=== PATIENT | male | born 1955 | race Two or more races ===

== ENCOUNTER 2017-09-10 12:14 | Emergency (ER) | payer OTHER ==
[2017-09-10 12:28] VITALS: BP 141/87; PULSE 69; TEMP 97.8; BMI 28.4
--- NOTE | 2017-09-10 13:24 | PDOC ---
History of Present Illness - General Chief Complaint: Cold Symptoms Stated Complaint: BODYACHES Time Seen by Provider: 09/10/17 12:50 History Source: Patient - History of Present Illness Timing/Duration: reports: other Associated Symptoms: reports: cough. denies: fever/chills, shortness of breath Past History - Past Medical History Allergies/Adverse Reactions: Allergies Allergy/AdvReac Type Severity Reaction Status Date / Time No Known Allergies Allergy Verified 09/10/17 12:28 Home Medications: Ambulatory Orders Hydrochlorothiazide [Hctz -] 12.5 mg PO DAILY 06/11/13 Lisinopril [Prinivil -] 40 mg PO DAILY 06/11/13 COPD: No HTN: Yes - Immunization History Immunization Up to Date: Yes - Suicide/Smoking/Psychosocial Hx Smoking Status: No Smoking History: Never smoked Have you smoked in the past 12 months: No Number of Cigarettes Smoked Daily: 0 Information on smoking cessation initiated: No Hx Alcohol Use: No Drug/Substance Use Hx: No Substance Use Type: None Review of Systems - Review of Systems Constitutional: No: Chills, Fever Respiratory: Yes: Cough. No: Shortness of Breath Cardiac (ROS): No: Chest Pain *Physical Exam - Vital Signs Last Vital Signs Temp Pulse Resp BP Pulse Ox 97.8 F 69 16 141/87 100 09/10/17 12:25 09/10/17 12:25 09/10/17 12:25 09/10/17 12:25 09/10/17 12:25 - Physical Exam General Appearance: Yes: Appropriately Dressed. No: Apparent Distress HEENT: positive: Normal Voice Respiratory/Chest: positive: Lungs Clear, Normal Breath Sounds. negative: Respiratory Distress Cardiovascular: positive: Regular Rate, S1, S2 Integumentary: positive: Dry, Warm Neurologic: positive: Fully Oriented, Alert, Normal Mood/Affect Medical Decision Making - Medical Decision Making 09/10/17 13:24 61 yo M, h/o HTN, here w/ productive cough x 6 days. No sob, f/c. Denies body aches to me as was reported to triage. Not taking anything for cough. No tob hx. Pt well chuck and stable w/ clear chest/lungs. M/l viral. Dc w/ OTC meds and pmd f/u as needed *DC/Admit/Observation/Transfer Diagnosis at time of Disposition: Cough - Discharge Dispostion Disposition: HOME Condition at time of disposition: Good - Referrals Referrals: Whitney Hernandez MD [Primary Care Provider] - - Patient Instructions Additional Instructions: Es muy probable que tenga danette infeccin viral de las vas respiratorias superiores que se resolver a tiempo. Puede naa Delsym, Robitussin o guafenisin en el mostrador. Tambin joyce muchos lquidos. Si los sntomas persisten, peyton un seguimiento con quiroz PMD - Post Discharge Activity
== END 2017-09-10 13:14 | disposition home or self-care (01) ==
LOC: JERFT 12:14
DX: R05 Cough (principal); I10 Essential (primary) hypertension
CPT/HCPCS: 99281-25

== ENCOUNTER 2018-05-14 10:11 | Emergency (ER) | payer OTHER ==
[2018-05-14 10:19] VITALS: BP 141/81; PULSE 85; TEMP 98.2; BMI 27.4
--- NOTE | 2018-05-14 11:18 | PDOC ---
History of Present Illness - General Chief Complaint: Cold Symptoms Stated Complaint: COUGH Time Seen by Provider: 05/14/18 11:06 History Source: Patient Exam Limitations: No Limitations - History of Present Illness Initial Comments: CHIEF COMPLAINT: HISTORY OF PRESENT ILLNESS: Vital signs on arrival are within normal limits. REVIEW OF SYSTEMS: GENERAL/CONSTITUTIONAL: Subjective fever/chills. No weakness. No weight change. HEAD, EYES, EARS, NOSE AND THROAT: No change in vision. No ear pain or discharge. No sore throat. CARDIOVASCULAR: No chest pain or shortness of breath. RESPIRATORY: No cough, wheezing, or hemoptysis. GASTROINTESTINAL: See history of present illness. GENITOURINARY: No dysuria, frequency, or change in urination. MUSCULOSKELETAL: No joint or muscle swelling or pain. No neck or back pain. SKIN: No rash or easy bruising. NEUROLOGIC: No headache, vertigo, loss of consciousness, or loss of sensation. PHYSICAL EXAM: GENERAL: The patient is awake, alert, and fully oriented, in no acute distress. HEAD: Normal with no signs of trauma. ENT: Pupils equal, round and reactive to light, extraocular movements intact, sclera anicteric, conjunctiva clear. Neck supple. LUNGS: Clear to auscultation bilaterally. Normal excursion. No respiratory distress or use of accessory muscles. CV: RRR, S1/S2, no MRG. Cap refill < 2 sec. ABDOMEN: Soft, non-distended, non-tender even to deep palpation, no hepatomegaly or splenomegaly, no masses. EXTREMITIES: Normal range of motion, no edema. NEUROLOGICAL: Normal speech, normal gait. CN II-XII grossly intact. SKIN: Warm, dry, normal turgor, no rashes or lesions noted. Past History - Past Medical History Allergies/Adverse Reactions: Allergies Allergy/AdvReac Type Severity Reaction Status Date / Time No Known Allergies Allergy Verified 09/10/17 12:28 Home Medications: Ambulatory Orders Hydrochlorothiazide [Hctz -] 12.5 mg PO DAILY 06/11/13 Lisinopril [Prinivil -] 40 mg PO DAILY 06/11/13 Guaifenesin 200 mg PO Q6H #20 tablet 05/14/18 COPD: No HTN: Yes - Immunization History Immunization Up to Date: Yes - Suicide/Smoking/Psychosocial Hx Smoking Status: No Smoking History: Never smoked Have you smoked in the past 12 months: No Number of Cigarettes Smoked Daily: 0 Hx Alcohol Use: No Drug/Substance Use Hx: No Substance Use Type: None *Physical Exam - Vital Signs Last Vital Signs Temp Pulse Resp BP Pulse Ox 98.2 F 85 18 141/81 98 05/14/18 10:16 05/14/18 10:16 05/14/18 10:16 05/14/18 10:16 05/14/18 10:16 Moderate Sedation - Procedure Monitoring Vital Signs: Procedure Monitoring Vital Signs Temperature 98.2 F 05/14/18 10:16 Pulse Rate 85 05/14/18 10:16 Respiratory Rate 18 05/14/18 10:16 Blood Pressure 141/81 05/14/18 10:16 O2 Sat by Pulse Oximetry (%) 98 05/14/18 10:16 Medical Decision Making - Medical Decision Making A/P: *DC/Admit/Observation/Transfer Diagnosis at time of Disposition: Cough - Discharge Dispostion Disposition: HOME Condition at time of disposition: Good - Referrals Referrals: Whitney Hernandez MD [Primary Care Provider] - - Patient Instructions Printed Discharge Instructions: DI for Cough -- Adult Additional Instructions: Discharge Instructions: -A prescription for cough medicine has been sent to your pharmacy -Please call your doctor in 1 week if no improvement to set up an appointment Instrucciones de descarga: -Jeaneth receta para medicamentos contra la tos sampson sido enviada a quiroz farmacia. - Llame a quiroz mdico en 1 semana si no hay mejoras para programar jeaneth yun. Print Language: CITIZEN OF [place] - Post Discharge Activity Forms/Work/School Notes: Back to Work
== END 2018-05-14 11:32 | disposition home or self-care (01) ==
LOC: JERFT 10:11
DX: R05 Cough (principal); I10 Essential (primary) hypertension
CPT/HCPCS: 99281-25

== ENCOUNTER 2018-07-20 08:57 | Emergency (ER) | payer OTHER ==
[2018-07-20 09:15] VITALS: BP 149/83; PULSE 76; TEMP 97.8; BMI 27.4
[2018-07-20] MEDS ORDERED: FLUORESCEIN NA 1 EA STRIP OS ONE (09:41)
[2018-07-20] MEDS ORDERED: ERYTHROMYCIN 0.5% OPHTHALMIC OINTMENT 3.5 GM TUBE OS ONE (09:42)
[2018-07-20] MEDS ORDERED: ERYTHROMYCIN 0.5% OPHTHALMIC OINTMENT 3.5 GM TUBE ONE ×2 (09:49→09:51)
--- NOTE | 2018-07-20 09:49 | PDOC ---
History of Present Illness - General Chief Complaint: Eye Problem Stated Complaint: RT EYE PAIN Time Seen by Provider: 07/20/18 09:32 History Source: Patient Exam Limitations: No Limitations - History of Present Illness Initial Comments: 07/20/18 States yesterday was rubbing eyes when it accidentally scratched his right cornea. States had immediate pain, irrigated it, use cool compresses but today woke up and it was more painful and red. Denies visual changes, no other injury. Timing/Duration: unsure, 24 hours Severity: mild, moderate Past History - Travel Traveled outside of the country in the last 30 days: No Close contact w/someone who was outside of country & ill: No - Past Medical History Allergies/Adverse Reactions: Allergies Allergy/AdvReac Type Severity Reaction Status Date / Time No Known Allergies Allergy Verified 09/10/17 12:28 Home Medications: Ambulatory Orders Hydrochlorothiazide [Hctz -] 12.5 mg PO DAILY 06/11/13 Lisinopril [Prinivil -] 40 mg PO DAILY 06/11/13 Guaifenesin 200 mg PO Q6H #20 tablet 05/14/18 COPD: No HTN: Yes - Immunization History Immunization Up to Date: Yes - Suicide/Smoking/Psychosocial Hx Smoking Status: No Smoking History: Never smoked Have you smoked in the past 12 months: No Number of Cigarettes Smoked Daily: 0 Information on smoking cessation initiated: No Hx Alcohol Use: No Drug/Substance Use Hx: No Substance Use Type: None Review of Systems - Review of Systems Able to Perform ROS?: Yes Is the patient limited Romanian proficient: Yes Constitutional: Yes: Symptoms Reported, See HPI, Malaise. No: Fever HEENTM: Yes: Symptoms Reported, See HPI, Eye Pain, Tearing, Other Musculoskeletal: No: Symptoms Reported Integumentary: No: Symptoms Reported All Other Systems: Reviewed and Negative *Physical Exam - Vital Signs Last Vital Signs Temp Pulse Resp BP Pulse Ox 97.8 F 76 16 149/83 100 07/20/18 09:12 07/20/18 09:12 07/20/18 09:12 07/20/18 09:12 07/20/18 09:12 - Physical Exam General Appearance: Yes: Nourished, Appropriately Dressed, Apparent Distress, Mild Distress HEENT: positive: BASHIR (visual acuity 20/30 and affected eye, 20/50 in unaffected eye), TMs Normal, Rhinorrhea, Other (right eye is erythematous with tearing, photophobic. Globe is intact, no hyphema fluorescein staining reveals a 2 mm superficial abrasion at 9:00 looking at pupil) Neck: positive: Supple. negative: Tender Respiratory/Chest: positive: Lungs Clear, Normal Breath Sounds Integumentary: positive: Normal Color, Dry, Warm Neurologic: positive: auxiliary engineer II-XII NML intact, Fully Oriented, Alert, Normal Mood/ Affect, Normal Response, Motor Strength 5/5 Moderate Sedation - Procedure Monitoring Vital Signs: Procedure Monitoring Vital Signs Temperature 97.8 F 07/20/18 09:12 Pulse Rate 76 07/20/18 09:12 Respiratory Rate 16 07/20/18 09:12 Blood Pressure 149/83 07/20/18 09:12 O2 Sat by Pulse Oximetry (%) 100 07/20/18 09:12 Medical Decision Making - Medical Decision Making 07/20/18 corneal abrasion, discussed case with Dr. Mulligan's office who will be able to see patient at noon today for thorough ophthalmology exam. Erythromycin ointment applied and will discharged to be seen by ophthalmology today *DC/Admit/Observation/Transfer Diagnosis at time of Disposition: Corneal abrasion Qualifiers: Encounter type: initial encounter Laterality: right Qualified Code(s): S05.01XA - Injury of conjunctiva and corneal abrasion without foreign body, right eye, initial encounter - Discharge Dispostion Disposition: HOME Condition at time of disposition: Stable Decision to Admit order: No - Referrals Referrals: Whitney Hernandez MD [Primary Care Provider] - Yamilka Mulligan MD [Staff Physician] - - Patient Instructions Printed Discharge Instructions: DI for Corneal Abrasion Additional Instructions: Rest, avoid rubbing eyes Wash hands, use eye drops as directed, wash hands after use May use eye lubricating drops as often as needed erythromycin ointment, one thin film 3 times a day for 5 days Tylenol or ibuprofen for pain relief Avoid contact with others until redness and discharge is gone from eyes. Followup with ophthalmology in one to 2 days for thorough exam Return to emergency department for worsened pain, swelling, vision problems. Go TO 'S OFFICE AT 12:00 - Post Discharge Activity Forms/Work/School Notes: Back to Work
== END 2018-07-20 10:33 | disposition home or self-care (01) ==
LOC: JERFT 08:57
DX: S05.01XA Injury of conjunctiva and corneal abrasion without foreign body, right eye, initial encounter (principal); I10 Essential (primary) hypertension; X58.XXXA Exposure to other specified factors, initial encounter; Y93.89 Activity, other specified; Y92.89 Other specified places as the place of occurrence of the external cause; Y99.8 Other external cause status
CPT/HCPCS: 99281-25

== ENCOUNTER 2018-08-31 08:47 | Emergency (ER) | payer OTHER ==
[2018-08-31 09:04] VITALS: BP 145/77; PULSE 82; TEMP 98.7; BMI 27.1
--- NOTE | 2018-08-31 10:04 | PDOC ---
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 Pt also endorses urinary frequency and a "pulling sensation" and worsening lower abdominal pain when he urinates. Pt recently went to the [facility] 07/24-08/14, and was having normal BMs and was drinking bottled water. Pt states he has a history of kidney stones, but this pain feels differently and he has not had a stone for "many years". Pt has not taken any OTC medication for pain. Pt is tolerating PO food and fluid intake without difficulty. Pt has been having regular BMs almost every day, but has been having loose stool 2/2 to taking laxatives because "he thought maybe he had eaten something bad which is why he had pain". Pt denies any recent fevers/chills, headache, vision changes, syncope, chest pain, palpitations, SOB, nausea/vomiting, hematuria, testicular pain, penile discharge , constipation, or leg swelling. Social: Pt denies any cigarette, alcohol, or drug use. Prior smoker but quit 20 years ago. Recent trip to (see above), but no known sick contacts. Surgical: no relevant history. Family: no relevant history. 08/31/18 12:35 Past History - Travel Traveled outside of the country in the last 30 days: No Close contact w/someone who was outside of country & ill: No - Past Medical History Allergies/Adverse Reactions: Allergies Allergy/AdvReac Type Severity Reaction Status Date / Time No Known Allergies Allergy Verified 08/31/18 08:59 Home Medications: Ambulatory Orders Hydrochlorothiazide [Hctz -] 12.5 mg PO DAILY 06/11/13 Lisinopril [Prinivil -] 40 mg PO DAILY 06/11/13 Metronidazole 500 mg PO TID #21 tablet 08/31/18 Sulfamethoxazole/Trimethoprim [Bactrim Ds -] 1 tab PO BID #14 tablet 08/31/18 COPD: No HTN: Yes - Immunization History Immunization Up to Date: Yes - Suicide/Smoking/Psychosocial Hx Smoking Status: No Smoking History: Never smoked Have you smoked in the past 12 months: No Number of Cigarettes Smoked Daily: 0 Hx Alcohol Use: No Drug/Substance Use Hx: No Substance Use Type: None Review of Systems - Review of Systems Able to Perform ROS?: Yes Is the patient limited Italian proficient: No Constitutional: Yes: Weight Stable. No: Chills, Diaphoresis, Fever, Loss of Appetite, Malaise, Weakness HEENTM: No: Blurred Vision, Recent change in vision, Nose Congestion, Throat Pain, Throat Swelling, Difficulty Swallowing Respiratory: No: Cough, Orthopnea, Shortness of Breath Cardiac (ROS): No: Chest Pain, Edema, Irregular Heart Rate, Lightheadedness, Palpitations, Syncope, Chest Tightness ABD/GI: Yes: See HPI, Diarrhea (loose stools 2/2 laxatives, see HPI). No: Abdominal Distended, Blood Streaked Bowels, Constipated, Nausea, Poor Appetite, Poor Fluid Intake, Vomiting, Indigestion, Abdominal cramping : Yes: Frequency, Pain, Urgency. No: Burning, Dysuria, Discharge, Flank Pain , Hematuria, Incontinence, Testicular Mass, Testicular Swelling, Lesions, Testicular Pain Musculoskeletal: No: Back Pain, Joint Pain, Muscle Weakness Integumentary: No: Rash Neurological: No: Headache, Numbness, Paresthesia, Weakness, Unsteady Gait, Dizziness Psychiatric: No: Sleep Pattern Change, Change in Appetite Endocrine: No: Increased Urine, Change in Weight Hematologic/Lymphatic: No: Anemia, Blood Clots, Easy Bleeding, Easy Bruising All Other Systems: Reviewed and Negative *Physical Exam - Vital Signs Last Vital Signs Temp Pulse Resp BP Pulse Ox 98.7 F 82 16 145/77 98 08/31/18 09:00 08/31/18 09:00 08/31/18 09:00 08/31/18 09:00 08/31/18 09:00 - Physical Exam Comments: Vitals stable, pt afebrile. Pt in NAD, normal body habitus. PE showed pt alert and oriented. excel expert generally intact, muscular strength and sensation intact. Head normocephalic, atraumatic. Eyes PERRLA, EOMI. Oropharynx without erythema or exudates, no LAD b/l. No nasal congestion, hearing intact. Clear heart sounds, S1/S2, no JVD, b/l pedal edema, or heart murmur. Clear lung sounds, no respiratory distress, wheezes, crackles, or accessory muscle use. Diffuse suprapubic and lower abdominal tenderness to palpation, no CVA tenderness to palpation, no rebound, no guarding. Abdomen soft, non-distended, and with normoactive bowel sounds. : No testicular tenderness or swelling, no penile discharge or lesions. Skin without jaundice or rash. 08/31/18 11:30 ED Treatment Course - LABORATORY CBC & Chemistry Diagram: 08/31/18 11:09 08/31/18 11:09 Medical Decision Making - Medical Decision Making Pt was seen at bedside, also will be seen by attending Dr. Cole. Pt presenting with complaints of suprapubic pain x4 days. Pt also endorses urinary frequency and a "pulling sensation" and worsening lower abdominal pain when he urinates. Pt recently went to the [facility] 07/24-08/14, and was having normal BMs and was drinking bottled water. Pt states he has a history of kidney stones, but this pain feels differently and he has not had a stone for "many years". Pt has not taken any OTC medication for pain. Pt is tolerating PO food and fluid intake without difficulty. Pt has been having regular BMs almost every day, but has been having loose stool 2/2 to taking laxatives because "he thought maybe he had eaten something bad which is why he had pain". Pt denies any recent fevers/chills, headache, vision changes, syncope, chest pain, palpitations, SOB , nausea/vomiting, hematuria, testicular pain, penile discharge, constipation, or leg swelling. Considering UTI vs nephrolithiasis vs pyelo/infected stone vs LUTS/BPH. No testicular pain or penile discharge to suggest torsion or STI. Ordered work-up including CBC, CMP, UA, urine culture, US of kidneys/bladder. Provided 650 mg PO tylenol for pain. Will continue to reassess pt and monitor for symptomatic improvement. 08/31/18 11:17 Pt taken for US scan of kidneys and bladder. 08/31/18 12:27 CBC, CMP, and UA WNL. 08/31/18 12:40 US with small post-void residual, normal prostate, normal kidneys with no evidence of hydro or stones. Ordered CT abd/pelvis with IV contrast to r/o other abdominal pathology. 08/31/18 13:53 CT abd/pelvis showed acute sigmoid diverticulitis. Sent 500 mg flagyl TID and 800 mg bactrim DS BID to pt pharmacy. Pt has follow-up with PCP (Dr. Zuleta). Strict return precautions provided with pt understanding. 08/31/18 14:56 *DC/Admit/Observation/Transfer Diagnosis at time of Disposition: Sigmoid diverticulitis - Discharge Dispostion Disposition: HOME Condition at time of disposition: Improved Decision to Admit order: No - Referrals Referrals: Whitney Hernandez MD [Primary Care Provider] - - Patient Instructions Printed Discharge Instructions: DI for Diverticulitis Additional Instructions: You were seen in the ER today for lower abdominal pain. The results of your labs and imaging today showed diverticulitis, or small inflamed outpouchings in your intestines. We have sent 2 antibiotics to your pharmacy. Please follow-up with your primary care doctor within 1-2 days to discuss your visit and make sure your symptoms have improved. Please return to the ER if you have any worsening pain, development of fevers or chills, loss of consciousness, inability to tolerate food or fluids, or any other concerns. Print Language: THAI - Post Discharge Activity
--- NOTE | 2018-08-31 11:23 | PDOC ---
Attending Attestation - Resident Resident Name: Parris Brown - ED Attending Attestation I have performed the following: I have examined & evaluated the patient, The case was reviewed & discussed with the resident, I agree w/resident's findings & plan, Exceptions are as noted - HPI HPI: 08/31/18 11:18 62 M with h/o HTN presenting to ED with lower abdominal pain. Pt states it began 4 days ago and is localized to his suprapubic region. Pt denies N/V/D. Denies constipation but he states he has been taking laxatives, with no relief of his pain. Denies any F/C. Denies dysuria or flank pain. - Physicial Exam PE: 08/31/18 11:19 "GENERAL: Awake, alert, and fully oriented, in no acute distress. HEAD: No signs of trauma EYES: PERRLA, EOMI, sclera anicteric, conjunctiva clear ENT: Auricles normal inspection, hearing grossly normal, nares patent, oropharynx clear without exudates. Moist mucosa NECK: Nontender, no stepoffs, Normal ROM, supple, no lymphadenopathy, JVD, or masses LUNGS: Breath sounds equal, clear to auscultation bilaterally. No wheezes, and no crackles HEART: Regular rate and rhythm, normal S1 and S2, no murmurs, rubs or gallops ABDOMEN: + diffuse lower abdominal TTP, normoactive bowel sounds. No guarding, no rebound. No masses EXTREMITIES: Normal range of motion, no edema. No clubbing or cyanosis. No cords, erythema, or tenderness NEUROLOGICAL: Cranial nerves II through XII intact. 5/5 strength and sensation in all extremities, Normal speech, normal gait, normal cerebellar function SKIN: Warm, Dry, normal turgor, no rashes or lesions noted. - Medical Decision Making 08/31/18 11:21 62 M with lower abdominal pain. Possible urinary retention. Will obtain US to r/ o bladder distention or hydronephrosis. Also consider colitis/diverticulitis/ appendicitis. - Labs, UA - Renal/bladder US - Consider CT 08/31/18 14:54 Labs wnl US normal CT shows acute sigmoid diverticulitis Will DC with bactrim + flagyl Pt reassessed - pain is well controlled. Pt tolerating PO Pt is well appearing, with normal vitals. Clinically stable for DC at this time. I discussed the physical exam findings, ancillary test results and final diagnoses with the patient. I answered all of the patient's questions. The patient was satisfied with the care received and felt comfortable with the discharge plan and treatment plan. The patient agrees to follow up with the primary care physician within 24-72 hours.
[2018-08-31 11:38] LABS: BASO % 0.4 % (0-2.0); EOS % 3.6 % (0-4.5); HEMATOCRIT 41.6 % (35.4-49); LYMPH % 17.7 % (8-40); MCH 30.4 pg (25.7-33.7); MCHC 33.6 g/dl (32.0-35.9); MEAN CELL VOLUME 90.3 fl (80-96); MEAN PLT VOLUME 8.1 fl (7.5-11.1); NEUT % 70.3 % (42.8-82.8); PLATELET COUNT 208 K/MM3 (134-434); RBC 4.61 M/mm3 (4.00-5.60); RDW 13.5 % (11.9-15.9)
[2018-08-31 12:01] LABS: EPI CELLS 0.1 /HPF (0-5); PH,URINE 6.5 (5.0-8.0); URINE APPEARANCE CLEAR; URINE BACTERIA 0.3 /hpf (NEGATIVE); URINE BILIRUBIN NEGATIVE (NEGATIVE); URINE CASTS 0 /hpf (0-8); URINE COLOR YELLOW; URINE GLUCOSE (UA) NEGATIVE (NEGATIVE); URINE KETONE NEGATIVE (NEGATIVE); URINE LEUK ESTERASE NEGATIVE (NEGATIVE); URINE NITRITE NEGATIVE (NEGATIVE); URINE PROTEIN 2+ (NEGATIVE); URINE RBC 1 /hpf (0-4); URINE UROBILINOGEN 0.2 mg/dL (0.2-1.0); URINE WBC 0 /hpf (0-5)
[2018-08-31 12:04] LABS: ALBUMIN 3.5 g/dl (3.4-5.0); ALK PHOS 63 U/L (45-117); ANION GAP 7 MMOL/L (8-16); BILIRUBIN,TOTAL 0.4 mg/dL (0.2-1); BLOOD UREA NITROGEN 17 mg/dL (7-18); CALCIUM 8.8 mg/dL (8.5-10.1); CHLORIDE 105 mmol/L (98-107); CO2 27 mmol/L (21-32); GLUCOSE,RANDOM 91 mg/dL (74-106); POTASSIUM 4.5 mmol/L (3.5-5.1); SGOT/AST 16 U/L (15-37); SGPT/ALT 20 U/L (13-61); SODIUM 139 mmol/L (136-145); TOT PROT 7.3 g/dl (6.4-8.2)
[2018-08-31] MEDS ORDERED: ACETAMINOPHEN 325 MG TABLET (FP) PO ONE (12:27)
[2018-08-31] MEDS ORDERED: ACETAMINOPHEN 325 MG TABLET (FP) ONE (13:10)
== END 2018-08-31 15:21 | disposition home or self-care (01) ==
LOC: JER 08:47
DX: K57.92 Diverticulitis of intestine, part unspecified, without perforation or abscess without bleeding (principal); Z87.442 Personal history of urinary calculi; I10 Essential (primary) hypertension
CPT/HCPCS: 36415; 74177-TC; 76775-TC; 76856-TC; 80053; 81003; 85025; 87086; 99282-25

== ENCOUNTER 2019-06-07 08:02 | Emergency (ER) | payer OTHER ==
[2019-06-07 08:09] VITALS: TEMP 97.9; BMI 27.4
[2019-06-07] MEDS ORDERED: SODIUM CHLORIDE 1,000 ML IV STA (09:51)
[2019-06-07] MEDS ORDERED: FAMOTIDINE 20 MG/50 ML IVPB 50 ML IVPB ONE (09:51)
[2019-06-07] MEDS ORDERED: FAMOTIDINE 20 MG/50 ML IVPB 20 MG/50 ML MG IVPB ONE ×2 (10:10→10:15)
--- NOTE | 2019-06-07 10:14 | PDOC ---
Documentation entered by Cheng Moran SCRIBE, acting as scribe for Prashanth Painter MD. Prashanth Painter MD: This documentation has been prepared by the Dean gomez Xhesika, SCRIBE, under my direction and personally reviewed by me in its entirety. I confirm that the documentation accurately reflects all work, treatment, procedures, and medical decision making performed by me. History of Present Illness - General Chief Complaint: Pain, Acute Stated Complaint: FEVER/CHILLS/ABD PAIN Time Seen by Provider: 06/07/19 09:50 History Source: Patient Exam Limitations: No Limitations - History of Present Illness Initial Comments: 06/07/19 10:15 The patient is a 63 year old male with a significant PMH of HTN and diverticulitis (treated outpatient, never seen by GI) who presents to the emergency department for chills/sweats and abdominal pain since last night. The patient states yesterday morning he was at his usual normal health, during the night he felt sudden onset chills/sweats and abdominal pain. Pt states he took Tylenol and Aleve with mild relief of symptoms. Pt states this morning he was having a cup of coffee and endorsed similar symptoms, promoting his arrival to the ED. Pt denies any recent travel or sick contacts. Pt denies being on any new medication/abx. The patient denies chest pain, shortness of breath, headache and dizziness. Denies fever, cough, nausea, vomiting, diarrhea and constipation. Denies dysuria , frequency, urgency and hematuria. Allergies: Sulfa PCP: Lindsey Muller Past History - Past Medical History Allergies/Adverse Reactions: Allergies Allergy/AdvReac Type Severity Reaction Status Date / Time Sulfa (Sulfonamide Allergy Verified 06/07/19 08:09 Antibiotics) Home Medications: Ambulatory Orders Hydrochlorothiazide [Hctz -] 12.5 mg PO DAILY 06/11/13 Lisinopril [Prinivil -] 40 mg PO DAILY 06/11/13 COPD: No HTN: Yes - Immunization History Immunization Up to Date: Yes - Psycho Social/Smoking Cessation Hx Smoking Status: No Smoking History: Never smoked Have you smoked in the past 12 months: No Number of Cigarettes Smoked Daily: 0 Hx Alcohol Use: No Drug/Substance Use Hx: No Substance Use Type: None Review of Systems - Review of Systems Able to Perform ROS?: Yes Constitutional: Yes: Chills. No: Fever HEENTM: No: Ear Pain, Nose Congestion, Throat Pain Respiratory: Yes: Cough (dry x1 week). No: Shortness of Breath Cardiac (ROS): No: Chest Pain, Edema, Lightheadedness ABD/GI: No: Constipated, Diarrhea, Nausea, Vomiting : No: Burning, Dysuria, Flank Pain Integumentary: No: Rash Neurological: No: Headache All Other Systems: Reviewed and Negative *Physical Exam - Vital Signs Last Vital Signs Temp Pulse Resp BP Pulse Ox 97.9 F 82 16 123/67 96 06/07/19 08:06 06/07/19 08:06 06/07/19 08:06 06/07/19 08:06 06/07/19 08:06 - Physical Exam 06/07/19 10:17 GENERAL: The patient is awake, alert, and fully oriented, in no acute distress. HEAD: Normal with no signs of trauma. LUNGS: Breath sounds equal, clear to auscultation bilaterally. No wheeze/ crackles. HEART: Regular rate and rhythm, normal S1 and S2 without murmur or rub. ABDOMEN: +bilateral mid and lower abdominal tenderness L>R. Soft/nondistended. BS wnl. No guarding or rebound. No palpable masses. No hepatosplenomegaly. EXTREMITIES: Normal range of motion, no edema. No clubbing or cyanosis. No cords, erythema, or tenderness. NEUROLOGICAL: Cranial nerves II through XII grossly intact. Normal speech, normal gait. PSYCH: Normal mood, normal affect. SKIN: Warm, Dry, normal turgor, no rashes or lesions noted. Heart Score/ECG Review #1 ECG reviewed & interpreted by me at: 11:13 General ECG Interpretation: Sinus Rhythm, Normal Rate (72), Normal Intervals ( QTC 431), No acute ischemic changes ED Treatment Course - LABORATORY CBC & Chemistry Diagram: 06/07/19 09:51 06/07/19 09:51 - RADIOLOGY Radiology Studies Ordered: Category Date Time Status ABDOMEN & PELVIS CT WITH CONTR [CT] Stat CT Scan 06/07/19 10:06 Ordered Medical Decision Making - Medical Decision Making 06/07/19 10:11 A portion of this note was documented by scribe services under my direction. I have reviewed the details of the note, within reason, and agree with the documentation with the following case summary and management plan written by me. 63-year-old male with history of hypertension and diverticulitis, otherwise healthy and well and high functioning, presents now with chills since last night and mild abdominal cramping. Patient reports episode of subjective chills with periumbilical/epigastric discomfort last night, resolved but then recurred again this morning after drinking coffee. No associated nausea/ vomiting/diarrhea/constipation, slight dry cough for about 1 week but no shortness of breath or other URI symptoms, no cardiopulmonary complaints. No recent travel/sick contacts/antibiotics, never followed up with GI after his last episode of diverticulitis in August 2018. Vitals within normal limits Well-appearing Exam as noted with localized left lower quadrant tenderness on exam, otherwise soft and nondistended. 63-year-old male presents with nonspecific chills and intermittent abdominal cramping since last night, well-appearing here with normal vital signs and an exam that only localizes to the lower abdomen, left worse than right. Presentation could be consistent with enteritis/gastroenteritis, rule out recurrence of diverticulitis/colitis, other nonspecific viral etiology of chills is also on the differential. Labs EKG, check troponin given age IV fluids, antacid. Declines pain medication at this time. CT of the abdomen and pelvis given focal peritoneal findings Reassess 06/07/19 11:37 Labs are within normal limits, CBC without leukocytosis, chemistries are also normal including lipase and troponin. CT of the abdomen and pelvis pending, disposition accordingly. 06/07/19 13:25 CT without acute pathology, shows diverticulosis without diverticulitis. Abdominal exam benign with no guarding or rebound in the left lower quadrant, tolerating liquids and soup, agrees with discharge plan. GI referral, understands return criteria. Discharge - Discharge Information Problems reviewed: Yes Clinical Impression/Diagnosis: Abdominal pain Qualifiers: Abdominal location: unspecified location Qualified Code(s): R10.9 - Unspecified abdominal pain Condition: Improved Disposition: HOME - Follow up/Referral Referrals: Lindsey Thompson MD [Primary Care Provider] - Ernesto Christensen DO [Staff Physician] - Lindsey Velarde DO [Staff Physician] - - Patient Discharge Instructions Patient Printed Discharge Instructions: DI for Diarrhea and Traveler's Diarrhea -- Adult Additional Instructions: Activity as tolerated. Stay hydrated. Blood test and a CAT scan of the abdomen and pelvis showed no acute abnormalities. Your symptoms are likely due to a viral infection, which should run its course over the next 2 days. Tylenol 1000 mg every 8 hours as needed for pain. Take Pepcid 20 mg twice daily for the next week, avoiding dairy, spicy or fatty food, caffeine and alcohol. Continue your medications as previously prescribed by your physician. 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 Velarde or Dr. Catalan for an appointment) as soon as possible regarding today's emergency department visit. Return to the emergency department for any new or concerning symptoms, particularly persistent or worsening pain, fevers or chills, bloody diarrhea. - Post Discharge Activity
[2019-06-07 10:35] LABS: BASO % 0.2 % (0-2.0); EOS % 4.9 % (0-4.5); HEMATOCRIT 43.2 % (35.4-49); HEMOGLOBIN 14.8 GM/dL (11.7-16.9); LYMPH % 11.4 % (8-40); MCH 30.8 pg (25.7-33.7); MCHC 34.3 g/dl (32.0-35.9); MEAN CELL VOLUME 90.1 fl (80-96); MEAN PLT VOLUME 8.2 fl (7.5-11.1); MONO % 7.9 % (3.8-10.2); NEUT % 75.6 % (42.8-82.8); PLATELET COUNT 195 K/MM3 (134-434); RDW 13.5 % (11.9-15.9); WHITE BLOOD COUNT 7.6 K/mm3 (4.0-10.0)
[2019-06-07 10:56] LABS: ALBUMIN 3.9 g/dl (3.4-5.0); BILIRUBIN,TOTAL 0.6 mg/dL (0.2-1); BLOOD UREA NITROGEN 21.6 mg/dL (7-18); CALCIUM 8.6 mg/dL (8.5-10.1); CREATININE 1.2 mg/dL (0.55-1.3); POTASSIUM 4.5 mmol/L (3.5-5.1); TOT PROT 7.4 g/dl (6.4-8.2)
[2019-06-07 11:12] LABS: LIPASE 193 U/L (73-393)
[2019-06-07 12:22] LABS: URINE APPEARANCE CLEAR; URINE BILIRUBIN NEGATIVE (NEGATIVE); URINE COLOR YELLOW; URINE GLUCOSE (UA) NEGATIVE (NEGATIVE); URINE KETONE NEGATIVE (NEGATIVE); URINE LEUK ESTERASE NEGATIVE (NEGATIVE); URINE NITRITE NEGATIVE (NEGATIVE); URINE PROTEIN TRACE (NEGATIVE); URINE UROBILINOGEN 0.2 mg/dL (0.2-1.0)
[2019-06-07 13:45] VITALS: BP 128/72; PULSE 88
--- NOTE | 2019-06-07 15:19 | EKG ---
Test Reason : Blood Pressure : / mmHG Vent. Rate : 072 BPM Atrial Rate : 072 BPM P-R Int : 152 ms QRS Dur : 108 ms QT Int : 394 ms P-R-T Axes : 055 039 055 degrees QTc Int : 431 ms NORMAL SINUS RHYTHM NORMAL ECG WHEN COMPARED WITH ECG OF 11-JUN-2013 16:28, NO SIGNIFICANT CHANGE WAS FOUND Confirmed by MAXIMO OLIVER MD ([id number]) on 06/07/2019 3:18:59 PM Referred By: Confirmed By:MAXIMO OLIVER MD
== END 2019-06-07 13:45 | disposition home or self-care (01) ==
LOC: JER 08:02
PROC: 3E033GC Introduction of Other Therapeutic Substance into Peripheral Vein, Percutaneous Approach (ICD-10-PCS; principal; 2019-06-07)
DX: B34.9 Viral infection, unspecified (principal); I10 Essential (primary) hypertension; Z87.19 Personal history of other diseases of the digestive system
CPT/HCPCS: 36415; 74177-TC; 80053; 81003; 82550; 83690; 83735; 84484; 85025; 93005; 93010; 99283-25; J7030; Q9967

== ENCOUNTER 2020-10-15 14:29 | Emergency (ER) | payer OTHER ==
[2020-10-15 14:38] VITALS: TEMP 97.9; BMI 25.8
[2020-10-15] MEDS ORDERED: FAMOTIDINE 20 MG/50 ML IVPB 20 MG/50 ML MG IVPB ONE ×2 (15:24→15:41)
[2020-10-15] MEDS ORDERED: SODIUM CHLORIDE 0.9% 500 ML INFUS.BAG IV ONE (15:25)
[2020-10-15 16:16] LABS: BASO % 0.7 % (0-2.0); EOS % 2.3 % (0-4.5); HEMATOCRIT 42.5 % (35.4-49); HEMOGLOBIN 14.3 GM/dL (11.7-16.9); LYMPH % 22.9 % (8-40); MCH 30.5 pg (25.7-33.7); MCHC 33.7 g/dl (32.0-35.9); MEAN CELL VOLUME 90.6 fl (80-96); MEAN PLT VOLUME 8.3 fl (7.5-11.1); NEUT % 66.1 % (42.8-82.8); PLATELET COUNT 236 K/MM3 (134-434); RBC 4.69 M/mm3 (4.00-5.60); RDW 13.9 % (11.9-15.9); WHITE BLOOD COUNT 7.5 K/mm3 (4.0-10.0)
[2020-10-15 16:36] LABS: CALCIUM 9.3 mg/dL (8.5-10.1)
[2020-10-15 16:37] LABS: ALBUMIN 4.2 g/dl (3.4-5.0); BLOOD UREA NITROGEN 23.6 mg/dL (7-18)
[2020-10-15 16:40] LABS: CREATININE 1.5 mg/dL (0.55-1.3)
[2020-10-15 16:41] LABS: BILIRUBIN,TOTAL 0.4 mg/dL (0.2-1); TOT PROT 8.4 g/dl (6.4-8.2)
[2020-10-15 17:15] VITALS: BP 132/66; PULSE 70
== END 2020-10-15 17:14 | disposition home or self-care (01) ==
LOC: JER 14:29
PROC: 3E033GC Introduction of Other Therapeutic Substance into Peripheral Vein, Percutaneous Approach (ICD-10-PCS; principal; 2020-10-15)
DX: R10.13 Epigastric pain (principal)
CPT/HCPCS: 36415; 80053; 83690; 85025; 99284-25